=== PATIENT | male | born 1950 | race Caucasian/White ===

== ENCOUNTER 2016-06-15 22:44 | Emergency (ER) | payer MEDICARE, MEDICAID ==
[~2016-06-15] VITALS: Ht 180.3 cm; Wt 86.2 kg
[2016-06-15 23:02] VITALS: BP 117/73
== END 2016-06-16 07:42 | disposition left against medical advice (07) ==
LOC: ER 22:48
DX: H57.13 Ocular pain, bilateral (principal); R51 Headache; Z53.21 Procedure and treatment not carried out due to patient leaving prior to being seen by health care provider
CPT/HCPCS: 70450